=== PATIENT | female | born 1975 | race Caucasian/White ===

== ENCOUNTER 2017-05-04 17:19 | Emergency (ER) | payer OTHER ==
[~2017-05-04] VITALS: Ht 147.3 cm; Wt 61.7 kg
--- NOTE | ~2017-05-04 | CR229 ---
[facility] A Service of [facility] & [facility] RADIOLOGY TEXT RESULTS PATIENT: CHUNG CHILD LOCATION: SED : 73 UNIT #: [id number] AGE: [address]: Debi Pradhan SEX: F ORDER DR: [id number] [address] [address] [id number] E MR#: [id number] Acc #: [id number] NAME: CHUNG CHILD : 1975 SEX: F STUDY DATE/TIME: 05/04/2017 18:13 UNIT: SED ROOM: STUDY DESCRIPTION: CR Shoulder Min 2 View Lt Attending Physician: Debi Pradhan Pa-C Ordering Physician: Blake Not Listed Primary Care Physician: Viri Mcdowell Aprn MEDICAL IMAGING REPORT This report is preliminary unless electronic signature is present. EXAM Left shoulder 2 views HISTORY Shoulder pain after injury today. FINDINGS AP view with internal and external rotation of the shoulder girdle shows satisfactory relationship of the humeral head and glenoid fossa. The joint space is normal. There is no identifiable fracture or dislocation or bony destructive process about the shoulder girdle anatomy. The acromioclavicular joint is normal. There is no radiopaque foreign body in the region. IMPRESSION Normal shoulder. Dictated by... Francis Herron M.D. THIS IS AN ELECTRONICALLY VERIFIED REPORT Francis Herron M.D. at 05/05/2017 2:20 PM GLORY/purvi TD: 05/05/2017 12:28 JOB #: [id number] MEDICAL IMAGING REPORT Page 1 of 1
[2017-05-04] MEDS ORDERED: ZYRTEC (17:31)
[2017-05-04] MEDS ORDERED: CELEXA (17:31)
== END 2017-05-04 18:54 | disposition home or self-care (01) ==
LOC: SED 17:19
DX: S46.912A Strain of unspecified muscle, fascia and tendon at shoulder and upper arm level, left arm, initial encounter (principal); F17.200 Nicotine dependence, unspecified, uncomplicated; Z88.0 Allergy status to penicillin; X50.9XXA Other and unspecified overexertion or strenuous movements or postures, initial encounter; Y92.009 Unspecified place in unspecified non-institutional (private) residence as the place of occurrence of the external cause
CPT/HCPCS: 73030; 99283